=== PATIENT | female | born 1990 | race Two or more races ===

== ENCOUNTER 2023-03-01 17:12 | Emergency (ER) | payer SELFPAY ==
[~2023-03-01] VITALS: Ht 167.6 cm; Wt 72.7 kg
[2023-03-01] MEDS ORDERED: CYCL-839 PO (21:26)
[2023-03-01] MEDS ORDERED: IBUP1TAB5 PO (21:26)
[2023-03-01] MEDS ORDERED: HYDROcodone-ACET 5/325MG TAB PO ONE (21:30)
[2023-03-02 02:24] VITALS: BP 132/84; PULSE 95; RESP 18; TEMP 98; O2SAT 99
== END 2023-03-02 02:27 | disposition home or self-care (01) ==
LOC: EDBD 17:12 → ER 17:12
DX: S13.4XXA Sprain of ligaments of cervical spine, initial encounter (principal); S83.8X2A Sprain of other specified parts of left knee, initial encounter; S83.8X1A Sprain of other specified parts of right knee, initial encounter; S20.219A Contusion of unspecified front wall of thorax, initial encounter; S09.8XXA Other specified injuries of head, initial encounter; R10.9 Unspecified abdominal pain; Z79.1 Long term (current) use of non-steroidal anti-inflammatories (NSAID); Z79.899 Other long term (current) drug therapy; V49.59XA Passenger injured in collision with other motor vehicles in traffic accident, initial encounter; Y93.89 Activity, other specified; Y92.89 Other specified places as the place of occurrence of the external cause; Y99.8 Other external cause status
CPT/HCPCS: 70450; 71250; 72125; 73562; 74176